=== PATIENT | male | born 1990 | race Caucasian/White ===

== ENCOUNTER 2025-01-29 09:13 | Emergency (ER) | payer OTHER, SELFPAY ==
--- NOTE | ~2025-01-29 | XR_ITS ---
EXAMINATION: XR ANKLE, LEFT CLINICAL INFORMATION: swelling/pain COMPARISON: None available. TECHNIQUE: AP, lateral, and mortise views of the left ankle. FINDINGS: No fracture, dislocation, or suspicious bone lesion. Normal bone mineralization. Normal alignment. Mortise is intact. The talar dome is preserved. Joint spaces are preserved. No significant arthropathy. No significant ankle joint effusion. Soft tissues appear normal. XR/XR ankle LT min 3V IMPRESSION: Normal left ankle. Electronically signed by: Fredy Henson MD 01/29/2025 10:04 AM EDT
--- NOTE | ~2025-01-29 | XR_ITS ---
EXAMINATION: XR FOOT, LEFT CLINICAL INFORMATION: swelling/pain COMPARISON: None available. TECHNIQUE: AP, lateral, and oblique views of the left foot. FINDINGS: The bones and soft tissues are normal. No fracture. Alignment is anatomic. Joint spaces are maintained. XR/XR foot LT min 3V IMPRESSION: Unremarkable left foot. Electronically signed by: Jonh Brito MD 01/29/2025 10:05 AM EDT
[2025-01-29 09:18] VITALS: BP 147/83; PULSE 95; RESP 18; TEMP 36.6; O2SAT 96; BMI 33.3
--- NOTE | 2025-01-29 09:50 | ED_ITS ---
HPI - Extremity Problem General Chief complaint: Extremity Problem Stated complaint: L swollen ankle Time Seen by Provider: 01/29/25 09:30 Source: patient, RN notes reviewed and old records reviewed Mode of arrival: ambulatory History of Present Illness ED Provider: Sara Infante PA-C HPI Narrative: 34-year-old male with no significant past medical history presenting to the ED complaining of atraumatic left ankle/foot pain x3 days. Reports increased swelling and difficulty with weight-bearing secondary to pain. Reports associated pins and needles. Denies known injury, trauma, fall, weakness, numbness, recent travel, fever Related Data Previous Rx's ?Medication ?Instructions ?Recorded acetaminophen 500 mg tablet 500 mg PO Q6H PRN fever or pain 01/29/25 (Tylenol Extra Strength) #14 tabs naproxen 500 mg tablet 500 mg PO BID PRN pain 10 da ys #20 01/29/25 tabs prednisone 20 mg tablet 40 mg (2 x 20 mg) PO DAILY 5 days 01/29/25 #10 tabs Allergies Allergy/AdvReac Type Severity Reaction Status Date / Time shellfish derived (shellfish) Allergy Hives Verified 01/29/25 09:22 Review of Systems Review of Systems: Yes all other systems are reviewed and are negative Constitutional: Constitutional: Reports as per [facility] Past Medical History Attestation statement: The following information was validated with the patient. Source: old records reviewed Social History Social History Advance Directives: No Advance Directives Information Provided: No Physical Exam Vital Signs: Vital Signs: Last Vital Signs Temp 97.9 F 01/29/25 09:18 Pulse 95 01/29/25 09:18 Resp 18 01/29/25 09:18 BP 147/83 H 01/29/25 09:18 Pulse Ox 96 01/29/25 09:18 O2 Del Method Room Air 01/29/25 09:18 BMI result Body Mass Index 33.3 Const: General: cooperative, healthy appearing and no acute distress Orientation/consciousness: patient oriented x3 Limitations: no limitations HEENT: Head: Yes normal to inspection and Yes atraumatic Ears: hearing grossly normal bilaterally General nose exam: Normal external nose present Face and sinus: Yes normal facial exam Eyes: General: appearance normal, both eyes and all related structures EOM: EOMs intact bilaterally Neck: Neck: Yes normal visual inspection and Yes no meningeal signs Resp: Effort & Inspection: normal respiratory effort and no respiratory distress Cardio: Rate: regular rate Skin: Rashes: no rashes Wounds: no wounds Neuro: General: patient oriented x3, tone normal and no meningeal signs Cranial nerves: Yes CN's II-XII intact bilaterally Gait exam (Neuro): Normal gait present Extrem: Other: Left ankle/foot with appreciable swelling. No overlying erythema/warmth. Limited ROM secondary to pain. Neurovascularly intact. No pitting edema or calf tenderness. No Achilles tenderness. No ecchymosis or crepitus Course Course Course Narrative: -1050--left foot and ankle x-rays unremarkable > Kirk wrap applied for comfort and stability & patient was supplied with crutches > will treat patient empirically for gout. States has been treated for gout in the past without an official diagnosis Results discussed with patient including worrisome signs and symptoms and strict return precautions, and when to return to the emergency department. They verbalized understanding and feel safe for discharge at this time. Medical Decision Making Medical Decision Making [facility] Narrative: 34-year-old male with no significant past medical history presenting to the ED complaining of atraumatic left ankle/foot pain x3 days. On exam vital signs stable, afebrile, NAD, nontoxic appearing, physical exam as noted above. Concern for occult fracture/stress fracture vs sprain vs ? Gout. Low suspicion for septic joint/arthritis or DVT or Achilles tendon rupture Plan: X-ray. Pain control offered however declined at this time Please refer to course for remaining clinical decision making, interpretation of labs/imaging results, and discussions with consultants and/or family members. Differential Diagnosis Differential Diagnoses: The differential diagnosis associated with the presentation includes As above Admission/Observation Consideration of admission/observation: Escalation of care including admission/observation considered Lab Data [facility] Lab Attestation statement: I reviewed the patient's lab results. Independent Interpretation I performed an independent interpretation of an: Plain X-Ray Radiology Impression Discussion of test interpretation with radiology: I have reviewed the radiologist's reading. External Record Review External record reviewed: Inpatient record, Office record, Outpatient record, Prior outpatient labs, Prior outpatient radiology, Primary care record and Outside ED record Tests considered The following testing was considered but not selected: As above Prescription Management I considered prescription management with: Pain Medication Social Determinants Patient?s care significantly limited by Social Determinants of Health including: Other Social Determinant of Health Discharge Plan Discharge Clinical Impression: Gout Ankle pain Qualifiers: Chronicity: acute Laterality: left Qualified Code(s): M25.572 - Pain in left ankle and joints of left foot Patient Disposition: Home, Self-Care Instructions: Low Purine Diet (ED), Gout (ED) Additional Instructions: Your x-rays are unremarkable. Wear Kirk wrap and use crutches as needed for pain management Naproxen as an anti-inflammatory/pain medication, take with food Prednisone as a steroid Please have close follow up with your doctor. If symptoms persist or worsen, you develop fever, redness to area, inability ambulate return to the ED Prescriptions: New prednisone 20 mg tablet 40 mg PO DAILY 5 Days Qty: 10 0RF acetaminophen [Tylenol Extra Strength] 500 mg tablet 500 mg PO Q6H PRN (Reason: fever or pain) Qty: 14 0RF naproxen 500 mg tablet 500 mg PO BID PRN (Reason: pain) 10 Days Qty: 20 0RF Referrals: Dottie Kaplan PA [Primary Care Provider, Internal Medicine] Stand Alone Forms: Work/School Release Print Language: Panamanian
[2025-01-29 11:33] VITALS: BP 147/83; PULSE 95; RESP 18; TEMP 36.6; O2SAT 96
== END 2025-01-29 11:34 | disposition home or self-care (01) ==
PROVIDERS: Emergency Provider Emergency Medicine; PCP Physician Assistant
DX: M10.9 Gout, unspecified (principal); M25.572 Pain in left ankle and joints of left foot; M79.672 Pain in left foot
CPT/HCPCS: 73610; 73630; 99283

== ENCOUNTER → 2025-01-29 09:48 | Outpatient (BNV) | payer OTHER, SELFPAY | PROVIDERS: Emergency Provider Emergency Medicine; PCP Physician Assistant; Visit Provider Radiology Diagnostic Radiology | DX: M25.572 Pain in left ankle and joints of left foot (principal); R60.0 Localized edema | CPT/HCPCS: 73610; 73630 ==